=== PATIENT | female | born 2005 | race Caucasian/White ===

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

== ENCOUNTER 2023-03-23 10:48 | Emergency (ER) | payer MEDICAID ==
[~2023-03-23] VITALS: Ht 165.1 cm; Wt 85.5 kg
[2023-03-23 11:30] LABS: BASOPHILS # (AUTO) 0.1 X10'3 (0-0.2); BASOPHILS % (AUTO) 0.6 % (0-1); EOSINOPHILS # (AUTO) 0.1 X10'3 (0-0.9); EOSINOPHILS % (AUTO) 0.6 % (0-6); HEMATOCRIT 40.1 % (35.0-45.0); LYMPHOCYTES # (AUTO) 2.8 X10'3 (1.1-4.8); LYMPHOCYTES % (AUTO) 20.3 % (21-51); MEAN CORPUSCULAR HEMOGLOBIN 30.1 PG (27.0-31.0); MEAN PLATELET VOLUME 8.9 FL (7.4-10.4); MONOCYTES # (AUTO) 0.8 X10'3 (0-0.9); NEUTROPHILS # (AUTO) 9.9 X10'3 (1.8-7.7); NEUTROPHILS % (AUTO) 72.5 % (42-75); PLATELET COUNT 282 X10'3 (140-440); RED BLOOD COUNT 4.66 X10'6 (4.20-5.60); RED CELL DISTRIBUTION WIDTH 12.6 % (11.5-14.5); WHITE BLOOD COUNT 13.6 X10'3 (4.5-11.0)
[2023-03-23 11:52] LABS: ALANINE AMINOTRANSFERASE 32 U/L (12-78); ALKALINE PHOSPHATASE 99 IU/L (20-180); ANION GAP 15 (8-16); ASPARTATE AMINO TRANSFERASE 17 U/L (10-37); BILIRUBIN,TOTAL 0.4 MG/DL (0.1-1.0); BLOOD UREA NITROGEN 7 MG/DL (7-18); CALCIUM 9.7 MG/DL (8.5-10.1); CHLORIDE 108 MMOL/L (99-107); CREATININE 0.88 MG/DL (0.40-0.90); GLUCOSE 169 MG/DL (70-104); LIPASE 145 U/L (73-393); POTASSIUM 3.2 MMOL/L (3.5-5.1); SODIUM 141 MMOL/L (135-145); TOTAL CARBON DIOXIDE 18.2 MMOL/L (24-32); TOTAL PROTEIN 8.2 G/DL (6.4-8.2); eGFR 82 ML/MIN
[2023-03-23] MEDS ORDERED: normal saline 1000ML IV soln IVB ONE (13:00)
[2023-03-23] MEDS ORDERED: pantoprazole 40mg Tablet.DR PO ONE (13:00)
[2023-03-23] MEDS ORDERED: mag hydrox/Alum hydrox/simeth 30ml oral suspension PO ONE (13:00)
[2023-03-23] MEDS ORDERED: diphenhydrAMINE 50 mg/ml inj IV ONE (13:00)
[2023-03-23] MEDS ORDERED: LIDOcaine Viscous 15ml cup MM ONE (13:00)
[2023-03-23] MEDS ORDERED: proCHLORperazine 10 MG/2 ml inj IV ONE (13:00)
[2023-03-23] MEDS ORDERED: POTASSIUM BICARB 20meq eff tab 20 MEQ TABLET.EFF PO ONE (13:35)
[2023-03-23 15:16] VITALS: BP 116/70
[2023-03-23 16:01] LABS: CLARITY,URINE SLIGHTLY CLOUDY (Clear); COLOR,URINE YELLOW (Yellow); GLUCOSE, URINE NEGATIVE (Neg); KETONES,URINE 15 mg/dl (Neg); LEUKOCYTE ESTERASE ,URINE NEGATIVE (Neg); NITRITES, URINE NEGATIVE (Neg); OCCULT BLOOD,URINE NEGATIVE (Neg); PH,URINE 8.5 (4.8-8.0); PROTEIN,URINE TRACE mg/dl (Neg); UA COLLECTION TYPE CLN CATCH MIDSTREAM; UROBILINOGEN,URINE 0.2 E.U/dL (0.2-1.0)
[2023-03-23 16:08] LABS: URINE HCG NEGATIVE (NEG)
[2023-03-23 16:10] LABS: BACTERIA,URINE 1+ /HPF (Neg); MUCUS STRANDS FEW /LPF (Neg); RBC,URINE NONE SEEN /HPF (0-2); SQUAMOUS EPITHELIAL CELL,UR MANY /LPF (FEW)
--- NOTE | 2023-03-23 16:10 | NUR ---
PER LAB THEY NEED ANOTHER URINE SAMPLE D/T CATCH WAS CONTAMINATED
[2023-03-23 16:11] LABS: AMORPHOUS PHOSPHATES 2+
--- NOTE | 2023-03-23 16:14 | NUR ---
CHARGE SARAH MARTINEZ NOTIFIED TO COLLECT MORE URINE.
[2023-03-23] MEDS ORDERED: PANT20TA18 PO (16:20)
[2023-03-23] MEDS ORDERED: MAG355OR18 PO (16:20)
[2023-03-23] MEDS ORDERED: ONDA4TAB12 PO (16:20)
== END 2023-03-23 16:34 | disposition home or self-care (01) ==
LOC: ER 10:49
DX: K29.00 Acute gastritis without bleeding (principal); J45.909 Unspecified asthma, uncomplicated; E03.9 Hypothyroidism, unspecified; F41.9 Anxiety disorder, unspecified; Z72.89 Other problems related to lifestyle; Z79.899 Other long term (current) drug therapy
CPT/HCPCS: 36415; 80053; 81001; 81025; 83690; 85025; 93005; 96361; 96374; 96375; 99284; J0780; J1200; J7030

== ENCOUNTER 2023-12-12 07:55 | Emergency (ER) | payer MEDICAID ==
[~2023-12-12] VITALS: Ht 167.6 cm; Wt 81.2 kg
[~2023-12-12 07:55] MED LIST changes: +PANT20TA18 PO
[2023-12-12 08:07] VITALS: BP 129/70; PULSE 71; RESP 16; TEMP 98.1; O2SAT 96
[2023-12-12 08:45] LABS: BASOPHILS # (AUTO) 0.1 X10'3 (0-0.2); BASOPHILS % (AUTO) 0.5 % (0-1); EOSINOPHILS # (AUTO) 0.5 X10'3 (0-0.9); EOSINOPHILS % (AUTO) 3.6 % (0-6); HEMATOCRIT 40.8 % (35.0-45.0); HEMOGLOBIN 13.9 g/dl (12.0-16.0); LYMPHOCYTES # (AUTO) 3.5 X10'3 (1.1-4.8); LYMPHOCYTES % (AUTO) 27.8 % (21-51); MEAN CORPUSCULAR HEMOGLOBIN 30.3 PG (27.0-31.0); MEAN CORPUSCULAR HGB CONC 34.2 g/dL (33.0-36.5); MEAN CORPUSCULAR VOLUME 88.8 FL (78-98); MONOCYTES # (AUTO) 0.8 X10'3 (0-0.9); NEUTROPHILS # (AUTO) 7.9 X10'3 (1.8-7.7); NEUTROPHILS % (AUTO) 62.1 % (42-75); PLATELET COUNT 261 X10'3 (140-440); RED CELL DISTRIBUTION WIDTH 12.2 % (11.5-14.5); WHITE BLOOD COUNT 12.7 X10'3 (4.5-11.0)
[2023-12-12 08:57] LABS: URINE HCG NEGATIVE (NEG)
[2023-12-12 09:02] LABS: BILIRUBIN,URINE NEGATIVE (Neg); CLARITY,URINE CLEAR (Clear); COLOR,URINE YELLOW (Yellow); GLUCOSE, URINE NEGATIVE (Neg); KETONES,URINE NEGATIVE (Neg); LEUKOCYTE ESTERASE ,URINE NEGATIVE (Neg); NITRITES, URINE NEGATIVE (Neg); OCCULT BLOOD,URINE MODERATE (Neg); PROTEIN,URINE NEGATIVE (Neg)
[2023-12-12 09:07] LABS: ALANINE AMINOTRANSFERASE 20 U/L (12-78); ALBUMIN 3.8 G/DL (3.4-5.0); ALBUMIN/GLOBULIN RATIO 0.9 (1.1-1.5); ALKALINE PHOSPHATASE 90 IU/L (20-180); ANION GAP 10 (8-16); ASPARTATE AMINO TRANSFERASE 20 U/L (10-37); BILIRUBIN,TOTAL 0.3 MG/DL (0.1-1.0); BLOOD UREA NITROGEN 9 MG/DL (7-18); BUN/CREATININE RATIO 10.1 (10.0-20.0); CALCIUM 9.3 MG/DL (8.5-10.1); CHLORIDE 103 MMOL/L (99-107); CREATININE 0.89 MG/DL (0.40-0.90); GLUCOSE 93 MG/DL (70-104); LIPASE 42 U/L (16-77); POTASSIUM 3.6 MMOL/L (3.5-5.1); SODIUM 138 MMOL/L (135-145); TOTAL CARBON DIOXIDE 24.9 MMOL/L (24-32); TOTAL PROTEIN 8.1 G/DL (6.4-8.2); eCRCL 94 ML/MIN; eGFR 81 ML/MIN
[2023-12-12 09:08] LABS: UA COLLECTION TYPE CLN CATCH MIDSTREAM
[2023-12-12 09:14] LABS: BACTERIA,URINE NONE SEEN /HPF (Neg); MUCUS STRANDS FEW /LPF (Neg); RBC,URINE NONE SEEN /HPF (0-2); SQUAMOUS EPITHELIAL CELL,UR MODERATE /LPF (FEW); WBC,URINE 0-4 /HPF (0-4)
== END 2023-12-12 16:02 | disposition left against medical advice (07) ==
LOC: ER 07:55
DX: M54.50 Low back pain, unspecified (principal); Z53.21 Procedure and treatment not carried out due to patient leaving prior to being seen by health care provider
CPT/HCPCS: 36415; 80053; 81001; 81025; 83690; 85025; 99281

== ENCOUNTER 2024-03-02 09:07 | Emergency (ER) | payer MEDICAID ==
[~2024-03-02] VITALS: Ht 167.6 cm; Wt 69.3 kg
[2024-03-02 09:47] LABS: BASOPHILS # (AUTO) 0.1 X10'3 (0-0.2); BASOPHILS % (AUTO) 0.5 % (0-1); EOSINOPHILS # (AUTO) 0.3 X10'3 (0-0.9); EOSINOPHILS % (AUTO) 1.9 % (0-6); HEMATOCRIT 42.1 % (35.0-45.0); HEMOGLOBIN 14.3 g/dl (12.0-16.0); LYMPHOCYTES # (AUTO) 3.9 X10'3 (1.1-4.8); LYMPHOCYTES % (AUTO) 25.8 % (21-51); MEAN CORPUSCULAR HEMOGLOBIN 29.8 PG (27.0-31.0); MEAN CORPUSCULAR HGB CONC 33.9 g/dL (33.0-36.5); MEAN PLATELET VOLUME 8.8 FL (7.4-10.4); MONOCYTES # (AUTO) 0.8 X10'3 (0-0.9); MONOCYTES % (AUTO) 5.5 % (2-12); NEUTROPHILS # (AUTO) 10.1 X10'3 (1.8-7.7); NEUTROPHILS % (AUTO) 66.3 % (42-75); PLATELET COUNT 290 X10'3 (140-440); RED BLOOD COUNT 4.79 X10'6 (4.20-5.60); RED CELL DISTRIBUTION WIDTH 12.3 % (11.5-14.5); WHITE BLOOD COUNT 15.2 X10'3 (4.5-11.0)
[2024-03-02 09:50] LABS: BILIRUBIN,URINE NEGATIVE (Neg); CLARITY,URINE CLEAR (Clear); COLOR,URINE YELLOW (Yellow); GLUCOSE, URINE NEGATIVE (Neg); KETONES,URINE NEGATIVE (Neg); LEUKOCYTE ESTERASE ,URINE NEGATIVE (Neg); NITRITES, URINE NEGATIVE (Neg); OCCULT BLOOD,URINE NEGATIVE (Neg); PH,URINE 7.5 (4.8-8.0); PROTEIN,URINE NEGATIVE (Neg); UROBILINOGEN,URINE 0.2 E.U/dL (0.2-1.0)
[2024-03-02 09:52] LABS: UA COLLECTION TYPE CLN CATCH MIDSTREAM
[2024-03-02 09:54] LABS: ALBUMIN 3.8 G/DL (3.4-5.0); ANION GAP 9 (8-16); BLOOD UREA NITROGEN 9 MG/DL (7-18); BUN/CREATININE RATIO 10.8 (10.0-20.0); CALCIUM 9.7 MG/DL (8.5-10.1); CHLORIDE 103 MMOL/L (99-107); CREATININE 0.83 MG/DL (0.40-0.90); GLUCOSE 91 MG/DL (70-104); LIPASE 51 U/L (16-77); POTASSIUM 3.7 MMOL/L (3.5-5.1); SODIUM 140 MMOL/L (135-145); TOTAL CARBON DIOXIDE 28.2 MMOL/L (24-32); eCRCL 100 ML/MIN; eGFR 87 ML/MIN
[2024-03-02] MEDS: normal saline 1000ML IV soln IVB ONE ×2 (10:00→13:11)
[2024-03-02] MEDS: ondansetron 4mg rapidly disintigrating tab PO ONE (10:00)
[2024-03-02] MEDS: ondansetron/PF 4mg/2ml inj IV ONE (10:01)
[2024-03-02 10:51] LABS: URINE HCG NEGATIVE (NEG)
[2024-03-02] MEDS ORDERED: iohexol 300mg/ml 100ml inj. ONE (11:03)
[2024-03-02 11:17] LABS: ALANINE AMINOTRANSFERASE 28 U/L (12-78); ALBUMIN/GLOBULIN RATIO 0.9 (1.1-1.5); ALKALINE PHOSPHATASE 73 IU/L (46-116); ASPARTATE AMINO TRANSFERASE 22 U/L (10-37); BILIRUBIN,DIRECT 0.1 MG/DL (0-0.3); BILIRUBIN,TOTAL 0.6 MG/DL (0.1-1.0); TOTAL PROTEIN 8.2 G/DL (6.4-8.2)
[2024-03-02] MEDS ORDERED: ONDA8TAB13 PO (13:30)
[2024-03-02 14:00] VITALS: BP 110/80; PULSE 85; RESP 14; TEMP 98.6; O2SAT 98
== END 2024-03-02 14:03 | disposition home or self-care (01) ==
LOC: ER 09:07
DX: K52.9 Noninfective gastroenteritis and colitis, unspecified (principal); E03.9 Hypothyroidism, unspecified; J45.909 Unspecified asthma, uncomplicated; Z72.89 Other problems related to lifestyle; Z79.2 Long term (current) use of antibiotics; Z79.899 Other long term (current) drug therapy; Z79.1 Long term (current) use of non-steroidal anti-inflammatories (NSAID)
CPT/HCPCS: 36415; 74177; 80048; 80076; 81003; 81025; 83690; 85025; 96360; 99285; J3490; J7030; Q9967

== ENCOUNTER 2024-03-04 03:09 | Emergency (ER) | payer MEDICAID ==
[~2024-03-04] VITALS: Ht 167.6 cm; Wt 77.3 kg
[~2024-03-04 03:09] MED LIST changes: +ONDA8TAB13 PO
[2024-03-04 03:38] LABS: BASOPHILS % (AUTO) 0.4 % (0-1); EOSINOPHILS # (AUTO) 0.2 X10'3 (0-0.9); EOSINOPHILS % (AUTO) 1.8 % (0-6); HEMOGLOBIN 13.9 g/dl (12.0-16.0); LYMPHOCYTES # (AUTO) 2.9 X10'3 (1.1-4.8); LYMPHOCYTES % (AUTO) 24.7 % (21-51); MEAN CORPUSCULAR HEMOGLOBIN 30.4 PG (27.0-31.0); MEAN CORPUSCULAR HGB CONC 34.7 g/dL (33.0-36.5); MEAN CORPUSCULAR VOLUME 87.6 FL (78-98); MEAN PLATELET VOLUME 8.7 FL (7.4-10.4); MONOCYTES # (AUTO) 0.7 X10'3 (0-0.9); MONOCYTES % (AUTO) 5.6 % (2-12); NEUTROPHILS % (AUTO) 67.5 % (42-75); PLATELET COUNT 239 X10'3 (140-440); RED BLOOD COUNT 4.57 X10'6 (4.20-5.60); RED CELL DISTRIBUTION WIDTH 12.3 % (11.5-14.5); WHITE BLOOD COUNT 11.9 X10'3 (4.5-11.0)
[2024-03-04 03:43] LABS: ALBUMIN 3.5 G/DL (3.4-5.0); ANION GAP 11 (8-16); BLOOD UREA NITROGEN 8 MG/DL (7-18); BUN/CREATININE RATIO 10.8 (10.0-20.0); CHLORIDE 103 MMOL/L (99-107); CREATININE 0.74 MG/DL (0.40-0.90); GLUCOSE 89 MG/DL (70-104); POTASSIUM 3.8 MMOL/L (3.5-5.1); SODIUM 138 MMOL/L (135-145); TOTAL CARBON DIOXIDE 24.1 MMOL/L (24-32); eCRCL 113 ML/MIN; eGFR > 90 ML/MIN
[2024-03-04] MEDS: mag hydrox/Alum hydrox/simeth 30ml oral suspension PO ONE (04:01)
[2024-03-04] MEDS: LIDOcaine 2% Viscous 15ml cup TP ONE (04:01)
[2024-03-04] MEDS: ondansetron/PF 4mg/2ml inj IV ONE (04:01)
[2024-03-04] MEDS: famotidine/PF 10 mg/ml inj IV ONE (04:01)
[2024-03-04 05:15] VITALS: BP 108/65; PULSE 58; RESP 12; O2SAT 98
[2024-03-04] MEDS ORDERED: PANT-47 PO (05:17)
[2024-03-04 05:39] VITALS: TEMP 99
== END 2024-03-04 05:41 | disposition home or self-care (01) ==
LOC: ER 03:10
DX: K22.6 Gastro-esophageal laceration-hemorrhage syndrome (principal); J45.909 Unspecified asthma, uncomplicated; F41.9 Anxiety disorder, unspecified; E03.9 Hypothyroidism, unspecified; Z72.89 Other problems related to lifestyle; Z79.899 Other long term (current) drug therapy
CPT/HCPCS: 36415; 80048; 85025; 96374; 96375; 99284; J2405; J3490